=== PATIENT | male | born 1990 | race Caucasian/White ===

== ENCOUNTER 2019-06-05 08:54 | Emergency (ER) | payer MEDICAID ==
[~2019-06-05] VITALS: Ht 172.7 cm; Wt 110.0 kg
[2019-06-05 09:28] VITALS: BP 123/72
== END 2019-06-05 09:28 | disposition home or self-care (01) ==
LOC: ER 08:54
DX: R06.02 Shortness of breath (principal); Z88.6 Allergy status to analgesic agent; F15.10 Other stimulant abuse, uncomplicated
CPT/HCPCS: 99283